=== PATIENT | female | born 1935 | race Native Hawaiian/Other Pacific Islander ===

== ENCOUNTER 2022-07-09 15:24 | Emergency (ER) | payer OTHER ==
[~2022-07-09] VITALS: Ht 162.6 cm; Wt 85.3 kg
[2022-07-09 15:25] VITALS: BP 135/106; TEMP 97.8
[2022-07-09 15:52] LABS: PLATELET COUNT 250 K/uL (152-353)
[2022-07-09 16:04] LABS: POTASSIUM 3.8 mmol/L (3.6-5.2)
[2022-07-09] MEDS ORDERED: PIOG30TA PO (17:17)
[2022-07-09] MEDS ORDERED: AMLODIPINE BESYLATE PO (17:18)
[2022-07-09] MEDS ORDERED: LIPITOR10 MG PO (17:22)
[2022-07-09] MEDS ORDERED: FEROSUL325 MG PO (17:26)
[2022-07-09] MEDS ORDERED: LISI20TA11 PO (17:27)
[2022-07-09] MEDS ORDERED: PROTONIX20 MG PO (17:29)
[2022-07-09] MEDS ORDERED: LEVO0.08 PO (17:33)
[2022-07-09] MEDS ORDERED: TRADJENTA5 M1 PO (17:41)
[2022-07-09] MEDS ORDERED: GABA100C2 PO (17:45)
[2022-07-09] MEDS ORDERED: ALBUTEROL0.083 % PO (17:47)
== END 2022-07-09 16:51 | disposition still patient (30) ==
LOC: ED 15:24
PROVIDERS: Emergency Medicine Emergency Medical Services
DX: F03.911 Unspecified dementia, unspecified severity, with agitation (principal); N39.0 Urinary tract infection, site not specified; Z11.52 Encounter for screening for COVID-19; Z04.6 Encounter for general psychiatric examination, requested by authority
CPT/HCPCS: 80053; 81000; 85027; 87077; 87086; 87088; 87186; 87635; 93005; 99283; U0003